=== PATIENT | female | born 1955 | race Caucasian/White ===

== ENCOUNTER 2018-11-05 00:39 | Outpatient (CLI) | payer BC, SELFPAY ==
--- NOTE | 2018-11-05 15:00 | DI.MAMMO_ITS ---
SYMPTOM/DIAGNOSIS: SCREENING, Z12.31 MAMMOGRAMS: Mammograms were interpreted according to the usual protocol including computer analysis with CAD system, tomosynthesis and C view imaging. No prior comparison exams are available. The patient had a previous exam in 2004 which is no longer available for comparison. The breasts are composed of fatty density tissue, breast density, Category A. A pacemaker is noted over the left axillary region and upper left breast. No suspicious masses or suspicious microcalcifications are seen. IMPRESSION: Category 1A, negative mammogram. Yearly screening mammography is recommended. [facility] ASSESSMENT OF FINDINGS: Negative. Category 1. Patient will receive a letter notifying them of these results. BI-RAD category A. The breasts are almost entirely fatty.
== END 2018-11-05 00:59 ==
DX: Z12.31 Encounter for screening mammogram for malignant neoplasm of breast (principal)
CPT/HCPCS: 77063; 77067

== ENCOUNTER 2019-09-15 01:54 | Outpatient (CLI) | payer BC, SELFPAY ==
[2019-09-15 11:02] LABS: Hemoglobin A1C 5.7 % (4.5-6.2)
[2019-09-15 11:20] LABS: ALT 20 U/L (14-59); AST 19 U/L (15-37); Albumin 3.6 g/dL (3.4-5.0); Alkaline Phosphatase 129 U/L (46-116); Anion Gap 9.7 mmol/L (3-11); BUN 18 mg/dL (7-18); Bilirubin, Total 0.4 mg/dL (0.2-1.0); CO2 31.3 mmol/L (21.0-32.0); CREATININE 1.13 mg/dL (0.55-1.02); Chloride 101 mmol/L (98-107); Estimated GFR 48.79 (mL/min/1.73m2); Glucose 96 mg/dL (74-106); Potassium 3.2 mmol/L (3.5-5.1); Sodium 142 mmol/L (136-145); TSH (W/Ref FT4) 1.14 uIU/mL (0.36-3.74); Total Protein 7.8 g/dL (6.4-8.2)
== END 2019-09-15 02:14 ==
PROVIDERS: Visit Provider Family Medicine
DX: E03.9 Hypothyroidism, unspecified (principal); E05.00 Thyrotoxicosis with diffuse goiter without thyrotoxic crisis or storm; E87.6 Hypokalemia; I10 Essential (primary) hypertension; R73.9 Hyperglycemia, unspecified; G47.00 Insomnia, unspecified
CPT/HCPCS: 36415; 80053; 83036; 83735; 84443

== ENCOUNTER 2019-11-11 02:45 | Outpatient (CLI) | payer BC, SELFPAY ==
[2019-11-11 11:07] LABS: BUN 16 mg/dL (7-18); CREATININE 1.17 mg/dL (0.55-1.02); Calcium 9.6 mg/dL (8.5-10.1); Chloride 97 mmol/L (98-107); Estimated GFR 46.87 (mL/min/1.73m2); Glucose 121 mg/dL (74-106); Sodium 141 mmol/L (136-145)
[2019-11-11 11:15] LABS: Potassium 2.7 mmol/L (3.5-5.1)
== END 2019-11-11 03:05 ==
DX: I10 Essential (primary) hypertension (principal); E87.6 Hypokalemia; R60.0 Localized edema
CPT/HCPCS: 36415; 80048

== ENCOUNTER 2019-11-11 11:19 | Outpatient (REF) | payer BC, SELFPAY ==
--- NOTE | 2019-11-11 08:30 | PAPFT_PTH ---
PATIENT: Chiquita Valderrama LOC: [facility] U#:[id number] AGE/SX: 64/F ROOM: RE11/11/[address]: Danita Cadet APRN : 1955 BED: DIS: 11/11/2019 SPEC #: [id number] RECD: 11/11/19 11:41 STATUS: CHIN YODER #: [id number] DAKOTA: 11/11/19 08:[address]: Danita Cadet DEPT: [facility] Cytology RECD BY: Mago Martinez Tissues: 1 - CX/ENDOCX FOR PAP SMEARS Procedures: PAP THIN PREP/UVM Screening Comments: [id number] (HPV - QUANTITY NOT SUFFICIENT)
== END 2019-11-11 11:39 ==
LOC: LBN 11:19
DX: Z12.4 Encounter for screening for malignant neoplasm of cervix (principal); Z11.51 Encounter for screening for human papillomavirus (HPV)
CPT/HCPCS: 88142

== ENCOUNTER 2019-11-15 02:01 | Outpatient (CLI) | payer BC, SELFPAY ==
[2019-11-15 11:05] LABS: Potassium 3.9 mmol/L (3.5-5.1)
== END 2019-11-15 02:21 ==
DX: E87.6 Hypokalemia (principal); T50.2X5A Adverse effect of carbonic-anhydrase inhibitors, benzothiadiazides and other diuretics, initial encounter
CPT/HCPCS: 36415; 84132

== ENCOUNTER 2020-04-06 00:45 | Outpatient (CLI) | payer BC, SELFPAY ==
--- NOTE | 2020-04-06 10:55 | DI.MAMMO_ITS ---
EXAM: MG MAMMO SCREENING CLINICAL HISTORY: screening, Z12.39 TECHNIQUE: Bilateral full field digital CC and MLO mammographic images were obtained with 3D tomosyn thesis and utilizing computer aided detection (CAD). COMPARISON: Available for comparison. FINDINGS: Masses/Architectural Distortion: None seen. A pacemaker is in place overlying the left chest wall. Microcalcifications: No suspicious pleomorphic-type are seen. Skin Thickening/Nipple Retraction: None. IMPRESSION: 1. No significant interval change with no specific features of malignancy noted. 2. Unless there is more urgent need, screening mammography is recommended, as per [place] [employer] guidelines. BI-RADS Category 1 - Negative Breast Density - Category A - Almost entirely fatty A negative radiographic report should not delay biopsy if a dominant or clinically suspicious mass is present. Up to ten percent of cancers are not identified on mammography. A negative report may reinforce clinical impression. Adenosis and dense breasts may obscure an underlying neoplasm. False positive reports average 6 to 10%. Patient will receive a letter notifying them of these results.
== END 2020-04-06 01:05 ==
DX: Z12.31 Encounter for screening mammogram for malignant neoplasm of breast (principal); Z95.0 Presence of cardiac pacemaker
CPT/HCPCS: 77063; 77067

== ENCOUNTER 2020-11-09 13:01 | Outpatient (REF) | payer BC, SELFPAY ==
--- NOTE | 2020-11-09 11:00 | PAPFT_PTH ---
PATIENT: Chiquita Valderrama LOC: [facility] U#:[id number] AGE/SX: 65/F ROOM: RE11/09/[address]: Danita Cadet APRN : 1955 BED: DIS: 11/09/2020 SPEC #: [id number] RECD: 11/09/20 13:05 STATUS: CHIN YODER #: [id number] DAK[place]: 11/09/20 11:[address]: Danita Cadet DEPT: [facility] Cytology RECD BY: Mago Martinez Tissues: 1 - CX/ENDOCX FOR PAP SMEARS Procedures: PAP THIN PREP/UVM Screening HPV DNA PROBE Comments: [id number]
== END 2020-11-09 13:02 | disposition home or self-care (01) ==
LOC: LBN 13:01
DX: Z12.4 Encounter for screening for malignant neoplasm of cervix (principal); Z11.51 Encounter for screening for human papillomavirus (HPV)
CPT/HCPCS: 88142; 87624

== ENCOUNTER 2020-11-17 00:42 | Outpatient (CLI) | payer BC, SELFPAY ==
[2020-11-17 12:52] LABS: ALT 26 U/L (14-59); AST 19 U/L (15-37); Albumin 3.9 g/dL (3.4-5.0); Alkaline Phosphatase 134 U/L (46-116); Anion Gap 9.2 mmol/L (3-11); BUN 18 mg/dL (7-18); Bilirubin, Total 0.4 mg/dL (0.2-1.0); CO2 30.8 mmol/L (21.0-32.0); CREATININE 1.1 mg/dL (0.55-1.02); Calcium 9.7 mg/dL (8.5-10.1); Calculated LDL 170 mg/dL (<100); Chloride 99 mmol/L (98-107); Cholesterol 266 mg/dL (<200); Estimated GFR 50.17 (mL/min/1.73m2); Glucose 105 mg/dL (74-106); HDL Cholesterol 51 mg/dL (40-60); Potassium 3.3 mmol/L (3.5-5.1); Sodium 139 mmol/L (136-145); Total Protein 8.7 g/dL (6.4-8.2); Triglyceride 227 mg/dL (<150)
== END 2020-11-17 00:43 | disposition home or self-care (01) ==
LOC: LOS 00:42
DX: Z00.00 Encounter for general adult medical examination without abnormal findings (principal); Z13.220 Encounter for screening for lipoid disorders
CPT/HCPCS: 36415; 80053; 80061

== ENCOUNTER 2021-04-10 03:11 | Outpatient (CLI) | payer BC, SELFPAY ==
--- NOTE | 2021-04-10 07:15 | DI.MAMMO_ITS ---
Exam(s) MAMMO SCREENING EXAM: MAMMO SCREENING CLINICAL HISTORY: screening,z12.39 TECHNIQUE: Bilateral full field digital CC and MLO mammographic images were obtained with 3D tomosyn thesis and utilizing computer aided detection (CAD). COMPARISON: Available for comparison. FINDINGS: Masses/Architectural Distortion: None seen. Microcalcifications: No suspicious pleomorphic-type are seen. Skin Thickening/Nipple Retraction: None. IMPRESSION: 1. No significant interval change with no specific features of malignancy noted. 2. Unless there is more urgent need, screening mammography is recommended, as per [employer] guidelines. BI-RADS Category 1 - Negative Breast Density - Category B - Scattered areas of fibroglandular density Breast density category C or D implies that the patient has dense breast tissue. Dense breast tissue is very common and is not abnormal but dense breast tissue can make it harder to find cancer on a ma mmogram. Also, dense breast tissue may increase their breast cancer risk. This information about the result of the mammogram report was provided to the patient to raise their awareness. Use this report when you speak with the patient about their risks for breast cancer, which includes their family hist ory. At that time, you may recommend for more screening tests (Ultrasound or MRI) as they might be us eful based on their risk. A negative radiographic report should not delay biopsy if a dominant or clinically suspicious mass is present. Up to ten percent of cancers are not identified on mammography. A negative report may reinforce clinical impression. Adenosis and dense breasts may obscure an underlying neoplasm. False positive reports average 6 to 10%. Patient will receive a letter notifying them of these results.
== END 2021-04-10 03:31 ==
DX: Z12.31 Encounter for screening mammogram for malignant neoplasm of breast (principal); R92.8 Other abnormal and inconclusive findings on diagnostic imaging of breast
CPT/HCPCS: 77063; 77067

== ENCOUNTER 2022-01-07 04:24 | Outpatient (CLI) | payer BC, SELFPAY | END 2022-01-07 04:25 | disposition home or self-care (01) | LOC: LBO 04:25 ==

== ENCOUNTER 2022-01-22 20:39 | Outpatient (REF) | payer BC, SELFPAY ==
[2022-01-22 23:52] LABS: Anion Gap 7.8 mmol/L (3-11); BUN 27 mg/dL (7-18); CO2 29.2 mmol/L (21.0-32.0); CREATININE 1.3 mg/dL (0.55-1.02); Calcium 9.6 mg/dL (8.5-10.1); Chloride 100 mmol/L (98-107); Estimated GFR 41.24 (mL/min/1.73m2); Glucose 89 mg/dL (74-106); Potassium 3.5 mmol/L (3.5-5.1); Sodium 137 mmol/L (136-145)
== END 2022-01-22 20:40 | disposition home or self-care (01) ==
LOC: LBN 20:39
DX: E87.6 Hypokalemia (principal)
CPT/HCPCS: 80048

== ENCOUNTER 2022-02-11 01:32 | Outpatient (CLI) | payer BC, SELFPAY | END 2022-02-11 01:33 | disposition home or self-care (01) | LOC: LBO 01:32 ==

== ENCOUNTER → 2022-07-31 02:32 | Outpatient (CLI) | payer MEDICARE, BC, SELFPAY ==
--- NOTE | 2022-07-31 15:15 | DI.MAMMO_ITS ---
Exam(s) MAMMO SCREENING EXAM: MAMMO SCREENING CLINICAL HISTORY: screening,Z12.39 TECHNIQUE: Mammograms were interpreted according to the usual protocol including computer analysis w [employer] CAD system, tomosynthesis and C-view imaging. COMPARISON: FINDINGS: The breasts are of moderate density with fairly symmetrical distribution of fibroglandular tissue. N o dominant mass or clumped microcalcification is identified in either breast. The current examinatio n is compared with previous examinations including April 2021 and there has been no gross interval elizabeth nge in appearance in comparison prior studies. IMPRESSION: No specific evidence of malignancy at this time. Routine screening examinations are suggested at yea rly intervals in this age group according to the ACS ACR guidelines. BI-RADS Category 1 - Negative Breast Density - Category B - Scattered areas of fibroglandular density
== END ==
DX: Z12.31 Encounter for screening mammogram for malignant neoplasm of breast (principal)
CPT/HCPCS: 77063; 77067

== ENCOUNTER 2022-09-12 12:14 | Outpatient (REF) | payer MEDICARE, BC, SELFPAY ==
[2022-09-14 11:50] LABS: COVID-19 RT-PCR UVMMC Result Positive (Negative)
== END 2022-09-12 12:15 | disposition home or self-care (01) ==
LOC: LBN 12:14
PROVIDERS: PCP Nurse Practitioner Family; Visit Provider Physician Assistant Medical
DX: Z20.822 Contact with and (suspected) exposure to COVID-19 (principal)
CPT/HCPCS: U0003

== ENCOUNTER 2023-04-04 01:16 | Outpatient (CLI) | payer MEDICARE, SELFPAY ==
[2023-04-04 12:59] LABS: ALT 23 U/L (14-59); AST 19 U/L (15-37); Albumin 3.7 g/dL (3.4-5.0); Alkaline Phosphatase 118 U/L (46-116); Anion Gap 7.8 mmol/L (3-11); BUN 21 mg/dL (7-18); Bilirubin, Total 0.3 mg/dL (0.2-1.0); CO2 32.2 mmol/L (21.0-32.0); CREATININE 1.1 mg/dL (0.55-1.02); Calculated LDL 174 mg/dL (<100); Chloride 101 mmol/L (98-107); Cholesterol 272 mg/dL (<200); Estimated GFR 55.76 (mL/min/1.73m2); Glucose 111 mg/dL (74-106); HDL Cholesterol 48 mg/dL (40-60); Potassium 3.9 mmol/L (3.5-5.1); Sodium 141 mmol/L (136-145); TSH (W/Ref FT4) 1.04 uIU/mL (0.36-3.74); Total Protein 8.4 g/dL (6.4-8.2); Triglyceride 251 mg/dL (<150)
== END 2023-04-04 01:17 | disposition home or self-care (01) ==
LOC: LOS 01:16
PROVIDERS: PCP Nurse Practitioner Family; Visit Provider Nurse Practitioner Family
DX: E78.5 Hyperlipidemia, unspecified (principal); E05.00 Thyrotoxicosis with diffuse goiter without thyrotoxic crisis or storm; E87.6 Hypokalemia; I10 Essential (primary) hypertension
CPT/HCPCS: 36415; 80053; 80061; 84443

== ENCOUNTER 2023-05-10 10:04 | Inpatient (IN) | payer MEDICARE, SELFPAY ==
[2023-05-10] VITALS (43 sets, daily range): BP systolic 109–136; BP diastolic 67–94; PULSE 104–128; RESP 4–29; TEMP 35.4–37.5; O2SAT 87–95
--- NOTE | 2023-05-10 10:00 | RT.EKG_ITS ---
APPROVED REPORT Exam: Resting ECG Reason for Exam: sob Patient Location: E HR:119 bpm ECG Measurements Heart Rate 119 AXIS NC 148 P 63 QRSd 109 QRS -39 QT 342 T 126 QTc 482 Conclusion Ventricular-paced rhythm
--- NOTE | 2023-05-10 10:12 | ED.GENADUL_ITS ---
Discharge Plan Disposition Patient Disposition: Admit to [facility] Condition: Serious Discharge Details Clinical Impression: Pulmonary embolism on right Admit Date/Time: 05/10/23 13:52 Admit Provider: Mariano Ha Attending Provider: Mariano Ha Primary Care Provider: Edwin Velázquez ED Provider: Janet Rdz Medical Decision Making 68-year-old female with a past medical history of biventricular pacemaker, obesity, hypokalemia, Graves' disease hypertension presents to the ER with a chief complaint of shortness of breath that began acutely this morning upon awakening. She presented to express care sent her here for further eval. Repor t in urgent care was room air O2 sat after ambulation to 80%, she presents 92% on room air. She does have increased work of breathing diminished lung sounds bilaterally in the bases, she is a non-smoker, denies any chest pain. Denies any nausea vomiting diarrhea or any other associated symptoms. She is slightly tachypneic and tachycardic at 122. EKG was reviewed by Dr. Mistry and myself ER attending, old EKG available for review. Ventricular paced rhythm at a rate of 119. Cardiac work-up ordered including serial troponins, albuterol nebulizer, FLUVID and CT chest rule out PE. Differential diagnosis includes but not limited to pneumonia, URI, OK, CAD, PE. Labs show CBC with white blood cell count of 12.10, lymphocytes slightly elevated at 4.27 monocytes 0.90, sodium 139 potassium 3.4 creatinine 1.1 GFR 55.2 which appears to be patient's baseline, glucose 133 alk phos 148 initial troponin within normal limits TSH also within normal limits. BNP is negative. Urinalysis is pending at this time, COVID flu and RSV is pending. We will CT patient's chest for rule out PE versus pneumonia. [employer] pacemaker interrogated by billing and accounting staff assistant, the report shows 99% paced, in the last 93 days 2 episodes of 3 or more PVCs. Pacemaker interrogation is reassuring reassuring at this time. 1146: Spoke with V rad radiologist Dr. Carranza who reports that there is an extensive right-sided pulmonary embolism with positive right ventricular strain. Please see official report. Will discuss results with patient and call hospitalist for admission. Will consider Lovenox versus heparin. PT PTT added onto labs. 1156: O2 sats 87 to 89% on room air, patient placed on 2 L nasal cannula, O2 sat up to 92% on 2 L. She does have bilateral lower extremity edema approximately 2+ or more bilaterally. She does not know how long this has been going on. She says may be 2 to 3 days. I did discuss my recommendation for admission. Will page hospitalist. Patient states she has no history of blood clots personally. Her mom did have a DVT. She reports no recent long trips in a car plane however she did fly to [place] in February. Discussed plan of care with patient who verbalizes understanding and is in agreement with the plan. 1158: Hospitalist paged. 1211: Heparin infusion DVT, PE protocol ordered and bilateral lower extremity Doppler to rule out DVT due to lower extremity swelling. 1318: Spoke with Dr. Ha regarding patient case and details, he reccommends consultation with [facility] team to discuss appropriate anticoagulation, he agrees to come see patient in the ED. 1335: [facility] transfer center called to consult with [facility] team. Dr. Ha here at [facility] for eval. He agrees to accept patient for admission. 1349: Spoke with Dr. Kong with Cardiology, he recommends Lovenox over Heparin and possible transfer for further treatment options, He recommends starting on Lovenox , stop Heparin. Will call [facility] back for transfer request. 1357: Spoke with Dr. Ram regarding change in disposition. Second troponin slightly elevated at 106. Heparin order canceled, and Lovenox ordered. 1359: Spoke with Transfer center they state that they may be able to get patient in by tomorrow. Will re-page hospitalist. 1403: Spoke with Leland he is at BS for POCUS echo, will plan to admit here pending transfer if needed to [facility]. Accepting Physician at [facility] Dr. Prieto Knox. Bilateral lower extremity Doppler negative for DVT. Patient to be transferred up to floor. This text was generated using [employer]ation system, please disregard any oddities of phrase or misspellings. Medical Records Medical records reviewed: Yes I reviewed the patient's medical records. Medical records narrative: Patient had pacemaker placed in 2018 after complete heart block at [facility] Imaging Data Radiologic Study: Imaging: Ultrasound Radiologist's impression: TECHNIQUE: Imaging protocol: Real-time duplex ultrasound of the bilateral extremities with 2-D moore scale, color Doppler flow and spectral waveform analysis including responses to compression and other maneuvers (when performed) with image documentation. Complete exam focused on the lower extremity veins. COMPARISON: No relevant prior studies available. FINDINGS: Right deep veins: Unremarkable. The common femoral, femoral, proximal profunda femoral and popliteal veins are patent without thrombus. Normal Doppler waveforms. Normal compressibility and/or augmentation response. Left deep veins: Unremarkable. The common femoral, femoral, proximal profunda femoral and popliteal veins are patent without thrombus. Normal Doppler waveforms. Normal compressibility and/or augmentation response. Superficial veins: Bilateral saphenofemoral junctions are patent without thrombus. Soft tissues: Unremarkable. IMPRESSION: No evidence of deep vein thrombosis. Radiologic Study #2: Imaging: CT Scan Radiologist's impression: COMPARISON: No relevant prior studies available. FINDINGS: Tubes, catheters and devices: Left chest wall pacemaker with transvenous leads into the right atrium, right ventricle and coronary sinus. ARELIS RAINESINE Preliminary Radiology Report Pulmonary arteries: Nonocclusive saddle embolism. The distal portion of the right pulmonary artery becomes occluded with thrombus extends throughout the right lung. The left lung has no peripheral thrombi. RV/LV ratio: 1.4. Aorta: Unremarkable. No aortic aneurysm. No aortic dissection. Lungs: Focal fibrosis in the periphery of the right upper lobe. No lobar consolidations. Pleural spaces: Unremarkable. No pneumothorax. No pleural effusion. Heart: Moderate cardiomegaly. The heart has a biventricular configuration. Lymph nodes: Unremarkable. No enlarged lymph nodes. Bones/joints: Unremarkable. No acute fracture. Soft tissues: Unremarkable. IMPRESSION: Extensive right pulmonary artery thrombi. RV ratio 1.4 indicating right ventricular strain. Thank you for allowing us to participate in the care of your patient. Dictated and Authenticated by: Dale Carranza MD Lab Data Lab results reviewed: Yes I reviewed the patient's lab results. Labs: Laboratory Tests Range/Units 05/10/23 05/10/23 05/10/23 10:24 10:25 10:25 WBC (4.4-10.8) 10^3/uL 12.10 H RBC (3.93-5.22) 10^6/uL 5.26 H Hgb (11.2-15.7) g/dL 15.0 Hct (36.0-46.0) % 45.5 MCV (80-95) fL 87 MCH (27.0-33.0) pg 28.5 MCHC (32.0-36.0) % 33.0 RDW (11.7-14.6) % 14.1 Plt Count (130-400) 10^3/uL 330 MPV (8.0-11.0) fL 9.4 Immature Gran % 0.5 Neutrophils % 54.2 Lymphocytes % 35.3 Monocytes % 7.4 Eosinophils % 1.9 Basophils % 0.7 Nucleated RBC % (0.0-0.3) % 0.0 Absolute Neutrophils (1.2-6.7) 10^3/uL 6.56 Absolute Lymphocytes (1.2-3.4) 10^3/uL 4.27 H Absolute Monocytes (0.1-0.8) 10^3/uL 0.90 H Absolute Eosinophils (0.0-0.7) 10^3/uL 0.23 Absolute Basophils (0.0-0.2) 10^3/uL 0.08 Sodium (136-145) mmol/L 139 Potassium (3.5-5.1) mmol/L 3.4 L Chloride (98-107) mmol/L 99 Carbon Dioxide (21.0-32.0) mmol/L 30.4 Anion Gap (3-11) mmol/L 9.6 BUN (7-18) mg/dL 18 Creatinine (0.55-1.02) mg/dL 1.1 H Est GFR (CKD-EPI 2020) (mL/min/1.73m2) 55.42 Glucose (74-106) mg/dL 133 H Calcium (8.5-10.1) mg/dL 9.6 Magnesium (1.8-2.4) mg/dL 2.0 Total Bilirubin (0.2-1.0) mg/dL 0.3 AST (15-37) U/L 16 ALT (14-59) U/L 23 Alkaline Phosphatase (46-116) U/L 148 H Troponin I (<or=60) ng/L < 50 NT-Pro-B Natriuret Pep (<300) pg/mL 56 Total Protein (6.4-8.2) g/dL 9.3 H Albumin (3.4-5.0) g/dL 4.0 TSH Cancelled 1.50 Urine Color (Yellow) Urine Clarity (Clear) Urine pH (5-8) Ur Specific [place] (1.005-1.025) Urine Protein (Negative) mg/dL Urine Ketones (Negative) mg/dL Urine Blood (Negative) Urine Nitrite (Negative) Urine Bilirubin (Negative) Urine Urobilinogen (Up to 0.2) mg/dL Ur Leukocyte Esterase (Negative) Urine RBC (0-2) HPF Urine WBC (0-5) HPF Ur Epithelial Cells (Negative) HPF Urine Crystals (Negative) HPF Urine Bacteria (Negative) HPF Urine Casts (Negative) LPF Urine Mucus (Negative) Ur Culture Indicated? Urine Glucose (Negative) mg/dL Range/Units 05/10/23 11:26 WBC (4.4-10.8) 10^3/uL RBC (3.93-5.22) 10^6/uL Hgb (11.2-15.7) g/dL Hct (36.0-46.0) % MCV (80-95) fL MCH (27.0-33.0) pg MCHC (32.0-36.0) % RDW (11.7-14.6) % Plt Count (130-400) 10^3/uL MPV (8.0-11.0) fL Immature Gran % Neutrophils % Lymphocytes % Monocytes % Eosinophils % Basophils % Nucleated RBC % (0.0-0.3) % Absolute Neutrophils (1.2-6.7) 10^3/uL Absolute Lymphocytes (1.2-3.4) 10^3/uL Absolute Monocytes (0.1-0.8) 10^3/uL Absolute Eosinophils (0.0-0.7) 10^3/uL Absolute Basophils (0.0-0.2) 10^3/uL Sodium (136-145) mmol/L Potassium (3.5-5.1) mmol/L Chloride (98-107) mmol/L Carbon Dioxide (21.0-32.0) mmol/L Anion Gap (3-11) mmol/L BUN (7-18) mg/dL Creatinine (0.55-1.02) mg/dL Est GFR (CKD-EPI 2020) (mL/min/1.73m2) Glucose (74-106) mg/dL Calcium (8.5-10.1) mg/dL Magnesium (1.8-2.4) mg/dL Total Bilirubin (0.2-1.0) mg/dL AST (15-37) U/L ALT (14-59) U/L Alkaline Phosphatase (46-116) U/L Troponin I (<or=60) ng/L NT-Pro-B Natriuret Pep (<300) pg/mL Total Protein (6.4-8.2) g/dL Albumin (3.4-5.0) g/dL TSH Urine Color (Yellow) Yellow Urine Clarity (Clear) Clear Urine pH (5-8) 7.0 Ur Specific [place] (1.005-1.025) 1.020 Urine Protein (Negative) mg/dL 100 H Urine Ketones (Negative) mg/dL Negative Urine Blood (Negative) Trace-intact H Urine Nitrite (Negative) Positive H Urine Bilirubin (Negative) Negative Urine Urobilinogen (Up to 0.2) mg/dL 0.2 Ur Leukocyte Esterase (Negative) Negative Urine RBC (0-2) HPF 3-5 H Urine WBC (0-5) HPF 3-5 Ur Epithelial Cells (Negative) HPF Many Urine Crystals (Negative) HPF Negative Urine Bacteria (Negative) HPF Many Urine Casts (Negative) LPF Negative Urine Mucus (Negative) Negative Ur Culture Indicated? No/Sq. Contamination Urine Glucose (Negative) mg/dL Negative HPI General Mode of arrival: ambulatory . Date/Time Provider Initiated Documentation: 05/10/23 10:11 . Limitations to Documentation: no limitations . Information obtained by: patient, RN/MD ([facility]), RN notes reviewed and old records reviewed . HPI Narrative: 68-year-old female with a past medical history of biventricular pacemaker, obesity, hypokalemia, Graves' disease hypertension presents to the ER with a chief complaint of shortness of breath that began acutely this morning upon awakening. She presented to express care sent her here for further eval. Report in urgent care was room air O2 sat after ambulation to 80%, she presents 92% on room air. She does have increased work of breathing diminished lung sounds bilaterally in the bases, she is a non-smoker, denies any chest pain. Denies any nausea vomiting diarrhea or any other associated symptoms. She is slightly tachypneic and tachycardic at 122. Related Data Home Medications Medication Instructions Recorded Confirmed aspirin 81 mg chewable tablet 81 mg PO DAILY 10/16/17 05/10/23 triamcinolone acetonide 0.025 % 1 applic topical BID #80 grams 01/22/22 05/10/23 topical ointment metoprolol succinate 50 mg 50 mg PO DAILY #90 tabs 08/21/22 05/10/23 tablet,extended release 24 hr amlodipine 10 mg tablet See Rx Instructions .Route 10/01/22 05/10/23 .COMPLEX #90 tabs hydrochlorothiazide 25 mg tablet See Rx Instructions .Route 10/01/22 05/10/23 .COMPLEX #90 tabs potassium chloride 20 mEq 20 meq PO ONCE 05/10/23 05/10/23 tablet,extended release (K-Tab) Previous Rx's Medication Instructions Recorded triamcinolone acetonide 0.025 % 1 applic topical BID #80 grams 01/22/22 topical ointment metoprolol succinate 50 mg 50 mg PO DAILY #90 tabs 08/21/22 tablet,extended release 24 hr amlodipine 10 mg tablet See Rx Instructions .Route 10/01/22 .COMPLEX #90 tabs hydrochlorothiazide 25 mg tablet See Rx Instructions .Route 10/01/22 .COMPLEX #90 tabs Allergies Allergy/AdvReac Type Severity Reaction Status Date / Time No Known Allergies Allergy Verified 05/10/23 09:40 General Stated Complaint: SOB ANGELA: 2 Review of Systems All systems reviewed & are unremarkable except as noted in HPI and below Constitutional Constitutional: Denies fever(s) Cardiovascular Cardiovascular: Reports as per HPI, Denies chest pain, Denies chest pain at rest, Reports rapid heart rate, Reports dyspnea and Reports dyspnea on exertion Respiratory Respiratory: Denies change in phlegm color, Reports cough, Denies hemoptysis, Reports dyspnea and Reports dyspnea on exertion Gastrointestinal Gastrointestinal: Denies diarrhea, Denies nausea and Denies vomiting [facility] All Active Problems (Updated 05/10/23 @ 15:23 by Mariano Ha MD) Elevated troponin I level (Acute) Pulmonary embolism, bilateral (Acute) Pulmonary embolism on right (Acute) Hypertension (Chronic 11/27/17) Graves disease (Chronic) Chronic bilateral low back pain without sciatica (Chronic 11/27/17) Bradycardia by electrocardiogram (Chronic 10/16/17) 10/23/17 - Pacer placed at [facility] for complete HB. Uterine prolapse (Chronic) Declines [employer] consult so far Screening cholesterol level (Acute) Hypokalemia (Acute) Obesity (BMI 35.0-39.9 without comorbidity) (Chronic) COVID (Acute ~09/05/22) Pacemaker (Acute) Medical History (Updated 05/10/23 @ 15:23 by Mariano Ha MD) Cardiomyopathy (~2008) echo 08/18/2009 generalized HK LV EF 39%; repeat echo 11/22/2021 normal, LVEF 61% Family History Mother Emphysema lung Asthma Father , AGE 84 Heart disease Kidney failure Sister Essential hypertension Sister Depression Brother Stroke Heart disease Brother Heart disease PACEMAKER Hyperlipidemia Son No problems noted. Daughter No problems noted. Social History Smoking/Tobacco Use Status: Never Second Hand Exposure: No Smoking risk assessment performed?: Yes Alcohol Intake: current Alcohol Intake frequency: a few times a month Alcohol type: beer and wine Drug use: Never Substance use type: does not use Counseling given: No Counseling provided: none Caregiver/Support person: No Household members: friend(s) Housing: other Communication Needs: None Pets and animals: Yes Pets and animals: cat(s) and dog(s) Sexually active: No Do you think of yourself as: straight/heterosexual Current gender identity: female What is your relationship status?: How often do you talk on the phone with friends or family?: twice per week How often do you get together with friends or relatives?: three or more times per week How often do you attend adventist or cheondoism services?: decline to answer Do you belong to any clubs or organized social groups?: no Panel score (0-1 are the most socially isolated patients): 1 What type of physical activity do you participate in: walking Duration: 15-30 minutes/day Frequency: 3-4 times per week Rebecca/Episcopal: Mandaeism Special rebecca needs: No Seatbelt use: always Helmet use: No Drive intox or ride w/intox water taxi driver: No Do you feel safe in your relationship?: Yes Exam Narrative Exam Narrative: Constitutional: Alert and oriented x3. Appears stated age. Normal body habitus. Head: Normocephalic, no trauma. Eyes: Pupils PERRL, Red reflex noted, EOM's intact. Eyelids symmetrical without lesions, discharge, or swelling. ENT: Bilateral TM's WNL, External ear normal to inspection, no mastoid TTP, swelling, or erythema, Nasal turbinates WNL, no nasal discharge. Normal dentition, Posterior pharynx WNL, no exudate. Chest: Mildly tachycardic at rate of 118 cool extremities,, Normal S1, S2, distal pulses intact. Resp: Lungs diminished to auscultation bilaterally, increased work of breathing, tachypneic Abdomen: Soft, non-distended, Normoactive bowel sounds all 4 quads. Musculoskeletal: Normal gait, 5/5 strength to all four extremities. Skin: No suspicious rashes or lesions. Capillary refill less than 2 sec. cool upper extremities, Bilateral lower extremity edema, 2+ non pitting. Neurologic: Cranial nerves II-XII intact. Alert and oriented x 3. Motor: No deficits noted. Sensory: Intact bilaterally all 4 extremities. Hematologic/Lymphatic: No ecchymosis, no lymphadenopathy. Course Vital Signs Vital signs: Vital Signs Temperature 36.7 C 05/10/23 10:08 Pulse 122 H 05/10/23 10:08 Respiratory Rate 26 H 05/10/23 10:08 Blood Pressure 132/85 05/10/23 10:08 Pulse Oximetry 92 05/10/23 10:08 Temperature 36.7 C 05/10/23 10:08 Temperature Source Oral 05/10/23 10:08 Pulse 122 H 05/10/23 10:08 Respiratory Rate 26 H 05/10/23 10:08 Blood Pressure 132/85 05/10/23 10:08 Blood Pressure Position Sitting 05/10/23 10:08 Pulse Oximetry 92 05/10/23 10:08 Oxygen Delivery Method Room Air 05/10/23 10:08 Oxygen Flow Rate 0 05/10/23 10:08 Pain Level 0 05/10/23 10:08 Critical Care Time Critical Care Time Critical Care Time: Yes Total Critical Care Time: 45 Attestation: I spent greater than 35 minutes addressing this patient's acute life threatening illness. This time was spent engaged in actions directly related to the patient's care. Failure to initiate these interventions would have likely resulted in clinically significant or life threatening deterioration in the patients condition.
--- NOTE | 2023-05-10 10:15 | DI.CT_ITS ---
Exam(s) CT CHEST PE CTA EXAM: CT CHEST PE CTA CLINICAL HISTORY: SOB, Tachycardia. TECHNIQUE: Imaging Protocol: Axial CT angiography was performed with multi-slice acquisition and mu lti-planar reconstructions as well as axial, coronal and sagittal MIP reconstructions. CONTRAST MATERIAL: Intravenous: Omnipaque 350 Contrast volume:100 ml COMPARISON: CR THORACIC SPINE from 01/22/2018 FINDINGS: Pulmonary Arteries: Saddle embolus. On the left the thrombus extends into the left main pulmonary ar zayda but no distal branch emboli are seen. On the right, the thrombus extends into all upper and low er lobe lobe is well as middle lobe pulmonary artery branches. Tracheobronchial tree: Patent where visualized. Mediastinum and Krystal: No dominant adenopathy or fluid collection. Pulmonary parenchyma: Evaluation limited due to respiratory motion and expiratory changes. No consol idation or dominant measurable mass. Pleura: No effusion or pneumothorax. Heart: Diffusely enlarged. Evidence of right heart strain. Aorta: Thoracic aorta non-dilated. No aneurysm. No dissection. Upper abdomen: Unremarkable. Bones: Unremarkable for age. Tubes, Catheters, and Lines: Pacemaker. IMPRESSION: Saddle embolus with thrombus extending into right upper, middle and lower lobe pulmonary arteries. E vidence of right heart strain. RADIATION DOSE DELIVERED: 315.27mGy.cm Total DLP DATA REPOSITORY: All CT scans at this facility are submitted to the National Radiology Data Registry (NRDR) Dose Index Registry (DIR) with the [employer] (ACR). RADIATION OPTIMIZATION: All CT scans at this facility use at least one of these dose optimization te chniques: automated exposure control; mA and/or kV adjustment per patient size (includes targeted exa ms where dose is matched to clinical indication); or iterative reconstruction.
[2023-05-10] MEDS: Albuterol/Ipratropium 3 ML UPD VIAL UPD (10:34)
[2023-05-10 10:41] LABS: Abs Immature Grans 0.06 10^3/uL (0.0-0.06); Absolute Basophil Count 0.08 10^3/uL (0.0-0.2); Absolute Eosinophil Count 0.23 10^3/uL (0.0-0.7); Absolute Lymphocyte Count 4.27 10^3/uL (1.2-3.4); Basophils % 0.7; Eosinophils % 1.9; HCT 45.5 % (36.0-46.0); Immature Grans % 0.5; Lymphocytes % 35.3; MCH 28.5 pg (27.0-33.0); MCV 87 fL (80-95); MPV 9.4 fL (8.0-11.0); Monocytes % 7.4; Neutrophils % 54.2; Platelet Count 330 10^3/uL (130-400); RBC 5.26 10^6/uL (3.93-5.22); RDW 14.1 % (11.7-14.6); RDW-SD 44.6 fL
[2023-05-10 10:42] LABS: Absolute Neutrophil Count 6.56 10^3/uL (1.2-6.7)
--- NOTE | 2023-05-10 10:58 | NUR.NOTE ---
Pace maker interrogated successfully using [employer] updated. Meds administered, pt updated with plan of care.
[2023-05-10 11:06] LABS: ALT 23 U/L (14-59); AST 16 U/L (15-37); Alkaline Phosphatase 148 U/L (46-116); Anion Gap 9.6 mmol/L (3-11); BUN 18 mg/dL (7-18); Bilirubin, Total 0.3 mg/dL (0.2-1.0); CO2 30.4 mmol/L (21.0-32.0); CREATININE 1.1 mg/dL (0.55-1.02); Calcium 9.6 mg/dL (8.5-10.1); Chloride 99 mmol/L (98-107); Estimated GFR 55.42 (mL/min/1.73m2); Glucose 133 mg/dL (74-106); NT-proBNP 56 pg/mL (<300); Potassium 3.4 mmol/L (3.5-5.1); Sodium 139 mmol/L (136-145); Total Protein 9.3 g/dL (6.4-8.2); Troponin I < 50 ng/L (<or=60)
[2023-05-10] MEDS: Omnipaque 350 MG/ML 100 ML BTL IJ (11:37)
[2023-05-10] MEDS: Normal Saline - Diluent 50 ML VIAL IJ (11:37)
[2023-05-10] MEDS: Normal Saline Flush 10 ML SYR IVP (11:38)
[2023-05-10 11:42] LABS: Bilirubin Negative (Negative); Blood Trace-intact (Negative); Clarity Clear (Clear); Glucose Negative (Negative); Ketones Negative (Negative); Leukocyte Esterase Negative (Negative); Nitrite Positive (Negative); Urobilinogen 0.2 mg/dL (Up to 0.2)
[2023-05-10 11:49] LABS: Bacteria Many HPF (Negative); C & S Indicated? No/Sq. Contamination; Casts Negative LPF (Negative); Crystals Negative HPF (Negative); Epithelial Cells Many HPF (Negative); Mucus Negative (Negative)
--- NOTE | 2023-05-10 11:52 | DI.VRAD_ITS ---
Addendum created by Dale Carranza MD on 05/10/2023 11:53:15 AM EDT: THIS REPORT CONTAINS FINDINGS THAT MAY BE CRITICAL TO PATIENT CARE. The findings were verbally communicated via telephone conference at 11:46 AM EST on 05/10/2023 with SUZE FRANCOIS. The findings were acknowledged and understood. Initial report created on 05/10/2023 11:52:38 AM EDT: PROCEDURE INFORMATION: Exam: CTA Chest With Contrast Exam date and time: 05/10/2023 11:35 AM Age: 68 years old Clinical indication: Shortness of breath and other: SOB, tachycardia; Prior surgery; Surgery date: 6+ months; Surgery type: Pacemaker TECHNIQUE: Imaging protocol: Computed tomographic angiography of the chest with contrast. Exam focused on the arteries. 3D rendering (Not supervised by radiologist): MIP and/or 3D reconstructed images were created by the technologist. Contrast material: ONIPAQU E 350; Contrast volume: 100 ml; Contrast route: INTRAVENOUS (IV); COMPARISON: No relevant prior studies available. FINDINGS: Tubes, catheters and devices: Left chest wall pacemaker with transvenous leads into the right atrium, right ventricle and coronary sinus. Pulmonary arteries: Nonocclusive saddle embolism. The distal portion of the right pulmonary artery becomes occluded with thrombus extends throughout the right lung. The left lung has no peripheral thrombi. RV/LV ratio: 1.4. Aorta: Unremarkable. No aortic aneurysm. No aortic dissection. Lungs: Focal fibrosis in the periphery of the right upper lobe. No lobar consolidations. Pleural spaces: Unremarkable. No pneumothorax. No pleural effusion. Heart: Moderate cardiomegaly. The heart has a biventricular configuration. Lymph nodes: Unremarkable. No enlarged lymph nodes. Bones/joints: Unremarkable. No acute fracture. Soft tissues: Unremarkable. IMPRESSION: Extensive right pulmonary artery thrombi. RV ratio 1.4 indicating right ventricular strain. Dictated and Authenticated by: Dale Carranza MD. Ordering:HUY Gonzales MD
[2023-05-10 11:58] LABS: COVID-19 PCR Negative (Negative); Influenza A PCR Negative (Negative); Influenza B PCR Negative (Negative); RSV PCR Negative (Negative)
--- NOTE | 2023-05-10 12:00 | DI.US_ITS ---
Exam(s) US EXTREMITY VENOUS BI EXAM: US EXTREMITY VENOUS BI CLINICAL HISTORY: Lower Extremity swelling, positive PE. TECHNIQUE: Bilateral lower extremity venous ultrasound performed using grayscale, color-flow, and sp ectral Doppler analysis. COMPARISON: No exams were available for comparison FINDINGS: The bilateral common femoral, femoral and popliteal veins demonstrate normal compressibility, augment ation, and color Doppler. The posterior tibial veins are patent. IMPRESSION: Right: Negative for DVT Left: Negative for DVT DATA REPOSITORY:
[2023-05-10 12:07] LABS: Prothrombin Time 9.9 sec (9.3-11.0)
[2023-05-10 12:16] LABS: Source Nasopharynx
[2023-05-10] MEDS: Heparin in 0.45% NaCl 25,000 UNIT/250 ML BAG 13 UNIT IV (12:30)
--- NOTE | 2023-05-10 13:21 | DI.VRAD_ITS ---
PROCEDURE INFORMATION: Exam: US Duplex Lower Extremity Veins, Bilateral Exam date and time: 05/10/2023 12:40 PM Age: 68 years old Clinical indication: Condition or disease; Other: Pe TECHNIQUE: Imaging protocol: Real-time duplex ultrasound of the bilateral extremities with 2-D moore scale, color Doppler flow and spectral waveform analysis including responses to compression and other maneuvers (when performed) with image documentation. Complete exam focused on the lower extremity veins. COMPARISON: No relevant prior studies available. FINDINGS: Right deep veins: Unremarkable. The common femoral, femoral, proximal profunda femoral and popliteal veins are patent without thrombus. Normal Doppler waveforms. Normal compressibility and/or augmentation response. Left deep veins: Unremarkable. The common femoral, femoral, proximal profunda femoral and popliteal veins are patent without thrombus. Normal Doppler waveforms. Normal compressibility and/or augmentation response. Superficial veins: Bilateral saphenofemoral junctions are patent without thrombus. Soft tissues: Unremarkable. IMPRESSION: No evidence of deep vein thrombosis. Dictated and Authenticated by: Dale Carranza MD. Ordering:HUY Gonzales MD
[2023-05-10 13:56] LABS: Troponin I 106 ng/L (<or=60)
[2023-05-10] MEDS: Enoxaparin 60 MG/0.6 ML SYR SC (14:07)
--- NOTE | 2023-05-10 14:50 | W.PM.HP.N ---
Date of service: 05/10/23 Time of Service: 14:50 Assessment and Plan Assessment and plan (1) Pulmonary embolism, bilateral: Status: Acute Assessment and plan: continue lovenox but dosing should be 1 mg/kg actual body weight not IBW. Patient received 60 mg SC in the ED, I spoke w/ pharmacy about this and have corrected her. She will get 80 mg SC q12h (the next rounded up dosing available as her actual BW is 73 kg.) (2) Hypertension: Status: Chronic Assessment and plan: hold her toprol XL and her norvasc for now. If bp remains stable and she is still tachycardic then will re-introduce lopressor. Qualifiers: Hypertension type: essential hypertension Qualified Code(s): I10 - Essential (primary) hypertension (3) Pacemaker: Status: Acute (4) Elevated troponin I level: Status: Acute Assessment and plan: secondary to RV strain. I did POCUS echo and she has dilated RV but has good TAPSE excursion. IVC not well seen but appears to be mildly dilated but still reduces 50% or more w/ inspiration. will get formal echo on Friday morning if she is not transferred to [facility] [place]. ED provider called the PERT team and cardiology wanted her transferred to [facility] but had no beds. They indicated possible transfer tomorrow but if she does well overnight on lovenox, I see no advantage to her being transferred. I will follow serial troponin levels, BNP initially was normal, will repeat in the a.m. Also checking lactate tonight. She is hemodynamically stable for the floor. History of Present Illness History of Present Illness Chief Complaint: dyspnea Narrative: 68 yr old female non smoker who is post menopausal not on estrogen replacement therapy who presented w/ acute dyspnea begining about 9 am. This occurred while she was at home and not doing any strenuous physical activity. No associated chest pain/pressure but associated w/ wheezing. no fevers or cough. Evaluation in the ED included CTA chest that demonstrated: Extensive right pulmonary artery thrombi with evidence of RV strain with RV to LV ratio of 1.4 there is a nonocclusive saddle embolism with the distal portion of the right pulmonary artery becoming occluded with thrombus extending throughout the right lung. Left lung has no peripheral thrombi. Patient has moderate cardiomegaly. Labs initially were unremarkable with a troponin less than 50 however second set of troponin came back at 106 with a normal proBNP of 56. Rest of her CMP was only remarkable for potassium 3.4 and her CBC was remarkable for a mild leukocytosis of 12,100. Urinalysis was suspicious for UTI with positive nitrites negative leukocyte Estrace many bacteria but also many epithelial cells. FLUVID swab was negative for SARS-CoV-2 as well as influenza and RSV. Marleni Rdz NP from the emergency department discussed the case with [facility] cardiology PERT team they recommend Lovenox and transfer to [facility] for formal echocardiogram. However no beds were available at [facility] and the patient is being admitted to [facility] overnight. Patient is hemodynamically stable although she remains mildly tachycardic. Oxygen saturation has been in the mid 90s on 2 L nasal cannula. Review of risk factors for thromboembolic disease patient's mother had a history of a DVT that was not related to any surgery. Patient herself is a non-smoker and does not take any estrogen replacement she is postmenopausal and has not been on a long plane rides or car rides in the last 3 months. Last trip was 6 months ago. Patient's had no recent surgery. She does have a remote history of a cardiomyopathy and has a pacemaker that was placed about 3 or 4 years ago at [facility]. She is followed by Dr. Seven Samuel. Her last echocardiogram was from 11/22/2021 and showed normal left ventricular size normal left ventricular systolic function with an EF of 61%. RV was normal in size and function. She had no hemodynamically significant valve disease. Compared to prior echocardiogram from October 2017 there is been normalization of her systolic function. Review of Systems All systems reviewed & are unremarkable except as noted in HPI and below PFSH All Active Problems (Updated 05/10/23 @ 15:23 by Mariano Ha MD) Elevated troponin I level (Acute) Pulmonary embolism, bilateral (Acute) Pulmonary embolism on right (Acute) Hypertension (Chronic 11/27/17) Graves disease (Chronic) Chronic bilateral low back pain without sciatica (Chronic 11/27/17) Bradycardia by electrocardiogram (Chronic 10/16/17) 10/23/17 - Pacer placed at [facility] for complete HB. Uterine prolapse (Chronic) Declines OPERATIONS SPECIALIST consult so far Screening cholesterol level (Acute) Hypokalemia (Acute) Obesity (BMI 35.0-39.9 without comorbidity) (Chronic) COVID (Acute ~09/05/22) Pacemaker (Acute) Medical History (Updated 05/10/23 @ 15:23 by Mariano Ha MD) Cardiomyopathy (~2008) echo 08/18/2009 generalized HK LV EF 39%; repeat echo 11/22/2021 normal, LVEF 61% Family History Mother Emphysema lung Asthma Father , AGE 84 Heart disease Kidney failure Sister Essential hypertension Sister Depression Brother Stroke Heart disease Brother Heart disease PACEMAKER Hyperlipidemia Son No problems noted. Daughter No problems noted. Social History Smoking/Tobacco Use Status: Never Second Hand Exposure: No Smoking risk assessment performed?: Yes Alcohol Intake: current Alcohol Intake frequency: a few times a month Alcohol type: beer and wine Drug use: Never Substance use type: does not use Counseling given: No Counseling provided: none Caregiver/Support person: No Household members: friend(s) Housing: house Communication Needs: None Pets and animals: Yes Pets and animals: cat(s) and dog(s) Sexually active: No Do you think of yourself as: straight/heterosexual Current gender identity: female What is your relationship status?: How often do you talk on the phone with friends or family?: twice per week How often do you get together with friends or relatives?: three or more times per week How often do you attend protestant or sikh services?: decline to answer Do you belong to any clubs or organized social groups?: no Panel score (0-1 are the most socially isolated patients): 1 What type of physical activity do you participate in: walking Duration: 15-30 minutes/day Frequency: 3-4 times per week Rebecca/Zoroastrian: Quaker Special rebecca needs: No Seatbelt use: always Helmet use: No Drive intox 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 Do you feel safe in your relationship?: Yes Meds Allergies and Home Medications Allergies Allergy/AdvReac Type Severity Reaction Status Date / Time No Known Allergies Allergy Verified 05/10/23 09:40 Home Medications Medication Instructions Recorded Confirmed Type aspirin 81 mg chewable tablet 81 mg PO DAILY 10/16/17 05/10/23 History triamcinolone acetonide 0.025 % 1 applic topical BID #80 grams 04/19/22 08/05/23 Rx topical ointment metoprolol succinate 50 mg 50 mg PO DAILY #90 tabs 08/21/22 05/10/23 Rx tablet,extended release 24 hr amlodipine 10 mg tablet See Rx Instructions .Route 10/01/22 05/10/23 Rx .COMPLEX #90 tabs hydrochlorothiazide 25 mg tablet See Rx Instructions .Route 10/01/22 05/10/23 Rx .COMPLEX #90 tabs potassium chloride 20 mEq 20 meq PO ONCE 05/10/23 05/10/23 History tablet,extended release (K-Tab) Exam Const General: cooperative, well developed, well groomed and anxious Nutritional Appearance: obese Orientation: alert, awake and oriented x3 HENMT Head: normal to inspection Ears: hearing grossly normal bilaterally General nose exam: external nose normal Face and sinus: normal facial exam Mouth: oral mucosae normal Eyes General: appearance normal, both eyes and all related structures Alignment and Position: alignment normal Periorbital: periorbital findings normal Eyelids: eyelids normal Conjunctivae: conjunctivae normal Sclera: sclerae normal Cornea: corneas normal Neck Neck: normal visual inspection, full ROM, no lymphadenopathy, trachea midline and no JVD Carotids: normal carotid upstroke Chest Chest: normal inspection of the chest and abnormal inspection of the chest scar (left infraclavicular space w/ pacer; no induration or redness) Resp Effort & Inspection: normal respiratory effort Auscultation: wheezes expiratory wheezes, lower bilaterally and upper bilaterally Cardio Jugular venous pressure: no JVD Palpation: normal PMI Rate: tachycardic Rhythm: regular rhythm Heart Sounds: S1 normal, S2 normal and normal, physiologic split S2 Pulses: brachial pulses present, radial pulses present and normal peripheral pulses GI Inspection: normal to inspection Palpation: soft Auscultation: normal bowel sounds Skin General skin exam: no rashes or lesions noted, elasticity normal and turgor normal Neuro General: patient alert, patient awake, patient oriented x3, tone normal, moves all extremities and no focal motor deficits Cognition: normal cognition Speech: speech normal Motor: muscle tone normal throughout Sensory Exam: no sensory deficits noted Extrem General: normal to inspection, full ROM and capillary refill normal Right lower extremity: edema Details: non-pitting and 2+ Left lower extremity: full ROM, normal capillary refill and edema Details: non-pitting and 2+ Psych Appearance: grossly normal Mental Status: mental status grossly normal Speech and Movement: speech and movement normal Mood: congruent mood Affect: normal affect Attitude: cooperative Thought Process: normal Thought Content: normal Insight: insight good Results Imaging CT scan - chest: report reviewed and image reviewed EKG: report reviewed and image reviewed (v paced @ 119 bpm) Labs 05/10/23 10:25 05/10/23 10:25 Labs: Laboratory Results - last 24 hr 05/10/23 05/10/23 05/10/23 10:24 10:25 10:25 WBC 12.10 H RBC 5.26 H Hgb 15.0 Hct 45.5 MCV 87 MCH 28.5 MCHC 33.0 RDW 14.1 Plt Count 330 MPV 9.4 Immature Gran % 0.5 Neutrophils % 54.2 Lymphocytes % 35.3 Monocytes % 7.4 Eosinophils % 1.9 Basophils % 0.7 Nucleated RBC % 0.0 Absolute Neutrophils 6.56 Absolute Lymphocytes 4.27 H Absolute Monocytes 0.90 H Absolute Eosinophils 0.23 Absolute Basophils 0.08 PT INR APTT Sodium 139 Potassium 3.4 L Chloride 99 Carbon Dioxide 30.4 Anion Gap 9.6 BUN 18 Creatinine 1.1 H Est GFR (CKD-EPI 2020) 55.42 Glucose 133 H Calcium 9.6 Magnesium 2.0 Total Bilirubin 0.3 AST 16 ALT 23 Alkaline Phosphatase 148 H Troponin I < 50 NT-Pro-B Natriuret Pep 56 Total Protein 9.3 H Albumin 4.0 TSH Cancelled 1.50 Urine Color Urine Clarity Urine pH Ur Specific Marion Urine Protein Urine Ketones Urine Blood Urine Nitrite Urine Bilirubin Urine Urobilinogen Ur Leukocyte Esterase Urine RBC Urine WBC Ur Epithelial Cells Urine Crystals Urine Bacteria Urine Casts Urine Mucus Ur Culture Indicated? Urine Glucose COVID-19 Source SARS-CoV-2 (PCR) Influenza Type A (PCR) Influenza Type B (PCR) RSV (PCR) 05/10/23 05/10/23 05/10/23 10:25 10:45 11:26 WBC RBC Hgb Hct MCV MCH MCHC RDW Plt Count MPV Immature Gran % Neutrophils % Lymphocytes % Monocytes % Eosinophils % Basophils % Nucleated RBC % Absolute Neutrophils Absolute Lymphocytes Absolute Monocytes Absolute Eosinophils Absolute Basophils PT 9.9 INR 1.0 APTT 26.0 Sodium Potassium Chloride Carbon Dioxide Anion Gap BUN Creatinine Est GFR (CKD-EPI 2020) Glucose Calcium Magnesium Total Bilirubin AST ALT Alkaline Phosphatase Troponin I NT-Pro-B Natriuret Pep Total Protein Albumin TSH Urine Color Yellow Urine Clarity Clear Urine pH 7.0 Ur Specific Marion 1.020 Urine Protein 100 H Urine Ketones Negative Urine Blood Trace-intact H Urine Nitrite Positive H Urine Bilirubin Negative Urine Urobilinogen 0.2 Ur Leukocyte Esterase Negative Urine RBC 3-5 H Urine WBC 3-5 Ur Epithelial Cells Many Urine Crystals Negative Urine Bacteria Many Urine Casts Negative Urine Mucus Negative Ur Culture Indicated? No/Sq. Contamination Urine Glucose Negative COVID-19 Source Nasopharynx SARS-CoV-2 (PCR) Negative Influenza Type A (PCR) Negative Influenza Type B (PCR) Negative RSV (PCR) Negative 05/10/23 13:32 WBC RBC Hgb Hct MCV MCH MCHC RDW Plt Count MPV Immature Gran % Neutrophils % Lymphocytes % Monocytes % Eosinophils % Basophils % Nucleated RBC % Absolute Neutrophils Absolute Lymphocytes Absolute Monocytes Absolute Eosinophils Absolute Basophils PT INR APTT Sodium Potassium Chloride Carbon Dioxide Anion Gap BUN Creatinine Est GFR (CKD-EPI 2020) Glucose Calcium Magnesium Total Bilirubin AST ALT Alkaline Phosphatase Troponin I 106 H* NT-Pro-B Natriuret Pep Total Protein Albumin TSH Urine Color Urine Clarity Urine pH Ur Specific Marion Urine Protein Urine Ketones Urine Blood Urine Nitrite Urine Bilirubin Urine Urobilinogen Ur Leukocyte Esterase Urine RBC Urine WBC Ur Epithelial Cells Urine Crystals Urine Bacteria Urine Casts Urine Mucus Ur Culture Indicated? Urine Glucose COVID-19 Source SARS-CoV-2 (PCR) Influenza Type A (PCR) Influenza Type B (PCR) RSV (PCR) Last Vital Signs Temp 36.7 C 05/10/23 10:08 Pulse 128 H 05/10/23 10:46 Resp 17 05/10/23 10:50 BP 111/70 05/10/23 10:46 Pulse Ox 95 05/10/23 10:59 Time Spent Time spent with Patient: >75 minutes Time was spent: preparing to see the patient(eg.review tests), obtaining and/or reviewing separately otained hiistory, ordering medications,tests, procedures, referring, communicating with other health animal caretaker supervisor (discussion w/ Janet Rdz NP), indepentently interpreting results, counseling the patient and care coordination
[2023-05-10 15:55] LABS: Lactate 2.1 mmol/L (0.6-1.4)
--- NOTE | 2023-05-10 15:56 | POCUS_ITS ---
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
[2023-05-10] MEDS: Potassium Chloride 20 MEQ TABCR 40 MEQ PO (16:55)
[2023-05-10 17:22] LABS: Troponin I 163 ng/L (<or=60)
[2023-05-10] MEDS: Enoxaparin 40 MG/0.4 ML SYR 20 MG SC (17:44)
--- NOTE | 2023-05-10 18:05 | NUR.NOTE ---
Nursing Note: At 1735, RN paged to pt's room. Increased SOB, WOB. Pt's family at bedside. CCRN, RT, Nursing Metal Room Dental Technician and MD to room. VS- 37.5 T, 144/94 BP, 22 R, 122 P, 89% 4 L (increasing to 91% on 4 L with concentration on breathing). Lovenox 20 mg administered stat. Report given to DIRECTOR AUTOMOTIVEHANNAH Moreau. Pt transported to ICU.
--- NOTE | 2023-05-10 18:15 | NUR.NOTE ---
Patient transfers from Med/Surg to ICU bed 221 at 18:00. Telemetry connected, vital signs taken, report taken at bedside from [facility] Med/bobbin trucker. Dr. Ha is present and in communication with [facility]. Patient continues on 4 liters of 02 via nasal cannula. Patient is tachycardic with a heart rate of 122. Patient sating 94% on 4 liters of 02 via nasal cannula. BP is 118/78, respirations are 22. Patient is afebrile with a temperature of 37.1.Nursing Note:
[2023-05-10] MEDS: Ondansetron 4 MG/2 ML VIAL IVP (19:37)
--- NOTE | 2023-05-10 23:51 | DSE_ITS ---
Date of service: 05/10/23 Time of Service: 23:51 DS: Diagnosis Discharge Diagnosis (1) Pulmonary embolism, bilateral: Status: Acute Asessment and Plan: Anticoagulated and transferred to for consideration of embolectomy or catheter directed therapy. (2) Hypertension: Status: Chronic (3) Pacemaker: Status: Acute (4) Elevated troponin I level: Status: Acute Discharge Plan Disposition Patient Disposition: Transfer-Acute Inpatient Care Specific Acute Inpt Facility: [facility] Condition: Stable Discharge Details Reason For Visit: Pulmonary Embolism Admit Date/Time: 05/10/23 13:52 Admit Provider: Mariano Ha Attending Provider: Mariano Ha Primary Care Provider: Edwin Velázquez Hospital Course Hospital Course: This patient was admitted with acute hypoxic respiratory failure and had CT imaging consistent with large predominantly right-sided pulmonary embolism. [id number] ultrasound confirmed RV volume overload and she continued to require 4 to 6 L supplemental oxygen and remained tachycardic despite anticoagulation with weight-based enoxaparin. She was admitted to the ICU at [facility]. She was accepted to for consideration of more aggressive care and was transferred via ambulance uneventfully. Bilateral lower extremity venous ultrasound studies were negative for DVT. Home Meds and New Rx's Prescriptions: No Action triamcinolone acetonide 0.025 % ointment 1 applic Topical BID Qty: 80 2RF Patient Comments: has not filled rx yet Rx Instructions: Apply to bilateral breast creases twice per day. aspirin 81 MG tablet,chewable 81 mg PO DAILY metoprolol succinate 50 mg tablet extended release 24 hr 50 mg PO DAILY Qty: 90 3RF amlodipine 10 mg tablet See Rx Instructions .ROUTE .COMPLEX Qty: 90 3RF Dose Instruction: TAKE ONE TABLET BY MOUTH EVERY DAY Rx Instructions: TAKE ONE TABLET BY MOUTH EVERY DAY hydrochlorothiazide 25 mg tablet See Rx Instructions .ROUTE .COMPLEX Qty: 90 3RF Dose Instruction: TAKE ONE TABLET BY MOUTH EVERY DAY Rx Instructions: TAKE ONE TABLET BY MOUTH EVERY DAY potassium chloride [K-Tab] 20 mEq tablet extended release 20 meq PO ONCE Discharge Instructions Activity:: Activity as Tolerated Equipment/Supplies:: No Equipment Needed Diet:: As Tolerated Discharge Orders Discharge Orders: Discharge Order (Routine); Ordered 05/10/23 Ordered By: Balbir Lorenz Discharge Data Discharge Date/Time-TO BE ENTERED AT DEPARTURE: 05/10/23 22:54 DS: Summary Summary Time spent discussing smoking cessation with patient: 3 to 10 minutes Time Spent with Patient providing and/or coordinating discharge services: Less than 30 minutes Status at Discharge Functional status at discharge: bed bound Overall status at discharge: patient is not back to baseline Mental Status: mental status grossly normal Speech and Movement: speech and movement normal Mood: congruent mood Affect: normal affect Exam Narrative Exam Narrative: She remains in mild respiratory distress but is hemodynamically stable. Cardiac exam reveals tachycardia without murmur and her chest is clear to auscultation. There is trace lower extremity peripheral edema. Psych Mental Status: mental status grossly normal Speech and Movement: speech and movement normal Mood: congruent mood Affect: normal affect DS: Data Vitals/I&O Vitals and I&O: Vital Signs Temperature 37.1 C 05/10/23 20:12 Temperature Source Temporal Artery Scan 05/10/23 20:12 Pulse 120 H 05/10/23 20:12 Pulse Rhythm Regular 05/10/23 17:17 Pulse 112 H 05/10/23 15:20 Respiratory Rate 23 05/10/23 20:12 Respiratory Effort Labored 05/10/23 20:12 Respiratory Depth Normal 05/10/23 20:12 Respiratory Pattern Tachypnea 05/10/23 20:12 Blood Pressure 118/78 05/10/23 20:12 Blood Pressure Mean 91 05/10/23 20:12 Blood Pressure Position Supine 05/10/23 20:12 Pulse Oximetry 94 05/10/23 20:12 Oxygen Delivery Method Nasal Cannula 05/10/23 20:12 Oxygen Flow Rate 4 05/10/23 20:12 Pain Level 0 05/10/23 21:44 Comment Pt's SOB increased. Up to 4 L NC. CCRN, RT and MD in room. Transfer orders to ICU. Report given to HANNAH Moreau. 05/10/23 17:36 Intake & Output 05/09/23 05/10/23 05/10/23 23:59 11:59 23:59 Intake Total 159.866 / 159.866 Output Total 500 / 500 Balance -340.134 / -340.134 Weight 73.482 kg 76.1 kg Intake: IV 39.866 / 39.866 Oral 120 / 120 Output: Urine 500 / 500 Other: Urine Color Yellow Urine Appearance Clear Voiding Methods Bedside Commode Data Completed and Pending Labs on day of discharge: Labs from last 24 hours 05/10/23 05/10/23 05/10/23 16:30 15:48 13:32 WBC RBC Hgb Hct MCV MCH MCHC RDW Plt Count MPV Immature Gran % Neutrophils % Lymphocytes % Monocytes % Eosinophils % Basophils % Nucleated RBC % Absolute Neutrophils Absolute Lymphocytes Absolute Monocytes Absolute Eosinophils Absolute Basophils PT INR APTT VBG Lactate 2.1 H Sodium Potassium Chloride Carbon Dioxide Anion Gap BUN Creatinine Est GFR (CKD-EPI 2020) Glucose Calcium Magnesium Total Bilirubin AST ALT Alkaline Phosphatase Troponin I 163 H* 106 H* NT-Pro-B Natriuret Pep Total Protein Albumin TSH Urine Color Urine Clarity Urine pH Ur Specific [place] Urine Protein Urine Ketones Urine Blood Urine Nitrite Urine Bilirubin Urine Urobilinogen Ur Leukocyte Esterase Urine RBC Urine WBC Ur Epithelial Cells Urine Crystals Urine Bacteria Urine Casts Urine Mucus Ur Culture Indicated? Urine Glucose COVID-19 Source SARS-CoV-2 (PCR) Influenza Type A (PCR) Influenza Type B (PCR) RSV (PCR) 05/10/23 05/10/23 05/10/23 11:26 10:45 10:25 WBC RBC Hgb Hct MCV MCH MCHC RDW Plt Count MPV Immature Gran % Neutrophils % Lymphocytes % Monocytes % Eosinophils % Basophils % Nucleated RBC % Absolute Neutrophils Absolute Lymphocytes Absolute Monocytes Absolute Eosinophils Absolute Basophils PT 9.9 INR 1.0 APTT 26.0 VBG Lactate Sodium Potassium Chloride Carbon Dioxide Anion Gap BUN Creatinine Est GFR (CKD-EPI 2020) Glucose Calcium Magnesium Total Bilirubin AST ALT Alkaline Phosphatase Troponin I NT-Pro-B Natriuret Pep Total Protein Albumin TSH Urine Color Yellow Urine Clarity Clear Urine pH 7.0 Ur Specific [place] 1.020 Urine Protein 100 H Urine Ketones Negative Urine Blood Trace-intact H Urine Nitrite Positive H Urine Bilirubin Negative Urine Urobilinogen 0.2 Ur Leukocyte Esterase Negative Urine RBC 3-5 H Urine WBC 3-5 Ur Epithelial Cells Many Urine Crystals Negative Urine Bacteria Many Urine Casts Negative Urine Mucus Negative Ur Culture Indicated? No/Sq. Contamination Urine Glucose Negative COVID-19 Source Nasopharynx SARS-CoV-2 (PCR) Negative Influenza Type A (PCR) Negative Influenza Type B (PCR) Negative RSV (PCR) Negative 05/10/23 05/10/23 05/10/23 10:25 10:25 10:24 WBC 12.10 H RBC 5.26 H Hgb 15.0 Hct 45.5 MCV 87 MCH 28.5 MCHC 33.0 RDW 14.1 Plt Count 330 MPV 9.4 Immature Gran % 0.5 Neutrophils % 54.2 Lymphocytes % 35.3 Monocytes % 7.4 Eosinophils % 1.9 Basophils % 0.7 Nucleated RBC % 0.0 Absolute Neutrophils 6.56 Absolute Lymphocytes 4.27 H Absolute Monocytes 0.90 H Absolute Eosinophils 0.23 Absolute Basophils 0.08 PT INR APTT VBG Lactate Sodium 139 Potassium 3.4 L Chloride 99 Carbon Dioxide 30.4 Anion Gap 9.6 BUN 18 Creatinine 1.1 H Est GFR (CKD-EPI 2020) 55.42 Glucose 133 H Calcium 9.6 Magnesium 2.0 Total Bilirubin 0.3 AST 16 ALT 23 Alkaline Phosphatase 148 H Troponin I < 50 NT-Pro-B Natriuret Pep 56 Total Protein 9.3 H Albumin 4.0 TSH 1.50 Cancelled Urine Color Urine Clarity Urine pH Ur Specific [place] Urine Protein Urine Ketones Urine Blood Urine Nitrite Urine Bilirubin Urine Urobilinogen Ur Leukocyte Esterase Urine RBC Urine WBC Ur Epithelial Cells Urine Crystals Urine Bacteria Urine Casts Urine Mucus Ur Culture Indicated? Urine Glucose COVID-19 Source SARS-CoV-2 (PCR) Influenza Type A (PCR) Influenza Type B (PCR) RSV (PCR) PFSH All Active Problems Elevated troponin I level (Acute) Pulmonary embolism, bilateral (Acute) Pulmonary embolism on right (Acute) Hypertension (Chronic 11/27/17) Graves disease (Chronic) Chronic bilateral low back pain without sciatica (Chronic 11/27/17) Bradycardia by electrocardiogram (Chronic 10/16/17) 10/23/17 - Pacer placed at [facility] for complete HB. Uterine prolapse (Chronic) Declines [employer] consult so far Screening cholesterol level (Acute) Hypokalemia (Acute) Obesity (BMI 35.0-39.9 without comorbidity) (Chronic) COVID (Acute ~09/05/22) Pacemaker (Acute) Medical History Cardiomyopathy (~2008) echo 08/18/2009 generalized HK LV EF 39%; repeat echo 11/22/2021 normal, LVEF 61% Family History Mother Emphysema lung Asthma Father , AGE 84 Heart disease Kidney failure Sister Essential hypertension Sister Depression Brother Stroke Heart disease Brother Heart disease PACEMAKER Hyperlipidemia Son No problems noted. Daughter No problems noted. Social History Smoking/Tobacco Use Status: Never Second Hand Exposure: No Smoking risk assessment performed?: Yes Alcohol Intake: current Alcohol Intake frequency: a few times a month Alcohol type: beer and wine Drug use: Never Substance use type: does not use Counseling given: No Counseling provided: none Caregiver/Support person: No Household members: friend(s) Housing: other Communication Needs: None Pets and animals: Yes Pets and animals: cat(s) and dog(s) Sexually active: No Do you think of yourself as: straight/heterosexual Current gender identity: female What is your relationship status?: How often do you talk on the phone with friends or family?: twice per week How often do you get together with friends or relatives?: three or more times per week How often do you attend latter day or shinto services?: decline to answer Do you belong to any clubs or organized social groups?: no Panel score (0-1 are the most socially isolated patients): 1 What type of physical activity do you participate in: walking Duration: 15-30 minutes/day Frequency: 3-4 times per week Rebecca/Orthodox: Confucianism Special rebecca needs: No Seatbelt use: always Helmet use: No Drive intox or ride w/intox car pick up driver: No Do you feel safe in your relationship?: Yes Time Spent with Patient Time Spent with Patient: <45 minutes Time was spent: preparing to see the patient(eg.review tests), obtaining and/or reviewing separately otained hiistory, ordering medications,tests, procedures, referring, communicating with other health care trainer, indepentently interpreting results, counseling the patient and care coordination
== END 2023-05-10 22:54 | disposition short-term general hospital (02) | DRG 176 ==
LOC: ER 14:07 → MS 15:49 → ICU 17:56
PROVIDERS: Admitting Provider Internal Medicine; Emergency Provider Registered Nurse Emergency; PCP Nurse Practitioner Family; Visit Provider Internal Medicine
DX: I26.99 Other pulmonary embolism without acute cor pulmonale (principal); R09.02 Hypoxemia; I10 Essential (primary) hypertension; Z95.0 Presence of cardiac pacemaker; E66.9 Obesity, unspecified; E87.6 Hypokalemia; E05.00 Thyrotoxicosis with diffuse goiter without thyrotoxic crisis or storm; Z79.899 Other long term (current) drug therapy; Z79.82 Long term (current) use of aspirin; R74.8 Abnormal levels of other serum enzymes; M54.50 Low back pain, unspecified; G89.29 Other chronic pain; Z68.30 Body mass index [BMI] 30.0-30.9, adult; I51.7 Cardiomegaly; R00.0 Tachycardia, unspecified; E87.70 Fluid overload, unspecified
CPT/HCPCS: 36415; 71275; 80053; 87637; 93005; 93308; 96365; 99291; J1650; 81003; 81015; 83605; 83735; 83880; 84443; 84484; 85025; 85610; 85730; 93010; 93970; 99236; J2405; J3490; J7620

== ENCOUNTER → 2023-07-07 03:17 | Outpatient (CLI) | payer MEDICARE, SELFPAY ==
--- NOTE | 2023-07-07 15:17 | DI.MAMMO_ITS ---
Exam(s) MAMMO SCREENING EXAM: MAMMO SCREENING CLINICAL HISTORY: SCREENING, Z12.39. TECHNIQUE: Bilateral full field digital CC and MLO mammographic images were obtained with 3D tomosyn thesis and utilizing computer aided detection (CAD). COMPARISON: Prior mammograms were reviewed. FINDINGS: There has been no significant change in the appearance and distribution of the fibroglandular tissue. Left-sided cardiac pacemaker again noted. There are no CAD designations. There are no new spiculated masses nor malignant appearing microcalcification groups. There is no significant architectural distortion nor skin thickening-retraction. IMPRESSION: No radiographic evidence of malignancy. BI-RADS Category 1 - Negative Breast Density - Category B - Scattered areas of fibroglandular density Breast density Category C or D implies that the patient has dense breast tissue. Dense breast tissue can make it harder to find cancer on a mammogram. Dense breast tissue is also associated with an incr eased risk of breast cancer. This information about the result of the mammogram report was provided to the patient to raise their awareness. Use this report when you speak with the patient about their risks for breast cancer, which includes their family history. At that time, you may recommend additional screening tests (Ultrasoun d or MRI) as these tests may add significant information. A negative radiographic report should not delay biopsy if a dominant or clinically suspicious mass is present. Up to ten percent of cancers are not identified on mammography. A negative report may reinforce clinical impression. Adenosis and dense breasts may obscure an underlying neoplasm. False positive reports average 6 to 10%. Patient will receive a letter notifying them of these results.
== END ==
PROVIDERS: PCP Nurse Practitioner Family; Visit Provider Nurse Practitioner Family
DX: Z12.31 Encounter for screening mammogram for malignant neoplasm of breast (principal)
CPT/HCPCS: 77063; 77067

== ENCOUNTER 2024-01-30 10:08 | Outpatient (CLI) | payer MEDICARE, SELFPAY ==
--- NOTE | 2024-01-30 10:00 | RT.EKG_ITS ---
APPROVED REPORT Exam: Resting ECG Reason for Exam: hypertension Patient Location: O HR:99 bpm ECG Measurements Heart Rate 99 AXIS MT 153 P 85 QRSd 111 QRS -10 QT 400 T 107 QTc 514 Conclusion Atrial-sensed ventricular-paced rhythm...ventricular pacing tracks p-waves No further analysis attempted due to paced rhythm
== END 2024-01-30 10:09 | disposition home or self-care (01) ==
LOC: DI.CM 10:10
PROVIDERS: PCP Nurse Practitioner Family; Visit Provider Nurse Practitioner Family
DX: I10 Essential (primary) hypertension (principal)
CPT/HCPCS: 93010

== ENCOUNTER 2024-01-30 14:34 | Outpatient (REF) | payer MEDICARE, SELFPAY ==
[2024-01-30 13:04] LABS: HCT 48.9 % (36.0-46.0); HGB 15.5 g/dL (11.2-15.7); MCH 28.2 pg (27.0-33.0); MCHC 31.7 % (32.0-36.0); MCV 89 fL (80-95); MPV 9.3 fL (8.0-11.0); Platelet Count 358 10^3/uL (130-400); RDW 14.2 % (11.7-14.6); WBC 8.23 10^3/uL (4.4-10.8)
[2024-01-30 13:45] LABS: Hemoglobin A1C 5.7 % (<5.7)
[2024-01-30 13:57] LABS: ALT 25 U/L (14-59); AST 20 U/L (15-37); Alkaline Phosphatase 169 U/L (46-116); Anion Gap 10.2 mmol/L (3-11); BUN 22 mg/dL (7-18); Bilirubin, Total 0.4 mg/dL (0.2-1.0); CO2 27.8 mmol/L (21.0-32.0); Calcium 9.3 mg/dL (8.5-10.1); Chloride 104 mmol/L (98-107); Estimated GFR 62.13 (mL/min/1.73m2); Glucose 109 mg/dL (74-106); Potassium 4.2 mmol/L (3.5-5.1); Sodium 142 mmol/L (136-145); TSH (W/Ref FT4) 0.86 uIU/mL (0.36-3.74); Total Protein 8.5 g/dL (6.4-8.2)
== END 2024-01-30 14:35 | disposition home or self-care (01) ==
LOC: LBN 14:34
PROVIDERS: PCP Nurse Practitioner Family; Visit Provider Nurse Practitioner Family
DX: E05.00 Thyrotoxicosis with diffuse goiter without thyrotoxic crisis or storm (principal); R73.9 Hyperglycemia, unspecified
CPT/HCPCS: 80053; 85027; 83036; 84443

== ENCOUNTER 2024-07-23 02:05 | Outpatient (CLI) | payer MEDICARE, SELFPAY ==
[2024-07-23 13:27] LABS: ALT 21 U/L (14-59); AST 17 U/L (15-37); Albumin 3.7 g/dL (3.4-5.0); Alkaline Phosphatase 159 U/L (46-116); Anion Gap 11.1 mmol/L (3-11); BUN 20 mg/dL (7-18); Bilirubin, Total 0.34 mg/dL (0.2-1.0); CO2 25.9 mmol/L (21.0-32.0); CREATININE 0.9 mg/dL (0.55-1.02); Calcium 9.5 mg/dL (8.5-10.1); Calculated LDL 79 mg/dL (<100); Chloride 106 mmol/L (98-107); Cholesterol 155 mg/dL (<200); Estimated GFR 70.07 (mL/min/1.73m2); Glucose 104 mg/dL (74-106); HDL Cholesterol 62 mg/dL (40-60); Potassium 4.4 mmol/L (3.5-5.1); Sodium 143 mmol/L (136-145); Total Protein 8.5 g/dL (6.4-8.2); Triglyceride 71 mg/dL (<150)
== END 2024-07-23 02:06 | disposition home or self-care (01) ==
LOC: LOS 02:05
PROVIDERS: PCP Nurse Practitioner Family; Visit Provider Nurse Practitioner Family
DX: E78.5 Hyperlipidemia, unspecified (principal)
CPT/HCPCS: 36415; 80053; 80061

== ENCOUNTER 2024-07-28 02:26 | Outpatient (CLI) | payer MEDICARE, SELFPAY ==
--- NOTE | 2024-07-28 07:30 | DI.MAMMO_ITS ---
Exam(s) MAMMO SCREENING EXAM: MAMMO SCREENING CLINICAL HISTORY: screening,Z12.39. TECHNIQUE: Bilateral full field digital CC and MLO mammographic images were obtained with 3D tomosyn thesis and utilizing computer aided detection (CAD). COMPARISON: Prior mammograms were reviewed. FINDINGS: There has been no significant change in the appearance and distribution of the fibroglandular tissue. No CAD designations. There are no new spiculated masses nor malignant appearing microcalcification groups. Left-sided cardiac pacemaker again noted. There is no significant architectural distortion nor skin thickening-retraction. IMPRESSION: No radiographic evidence of malignancy. BI-RADS Category 1 - Negative Breast Density - Category B - Scattered areas of fibroglandular density Breast density Category C or D implies that the patient has dense breast tissue. Dense breast tissue can make it harder to find cancer on a mammogram. Dense breast tissue is also associated with an incr eased risk of breast cancer. This information about the result of the mammogram report was provided to the patient to raise their awareness. Use this report when you speak with the patient about their risks for breast cancer, which includes their family history. At that time, you may recommend additional screening tests (Ultrasoun d or MRI) as these tests may add significant information. A negative radiographic report should not delay biopsy if a dominant or clinically suspicious mass is present. Up to ten percent of cancers are not identified on mammography. A negative report may reinforce clinical impression. Adenosis and dense breasts may obscure an underlying neoplasm. False positive reports average 6 to 10%. Patient will receive a letter notifying them of these results.
== END 2024-07-28 02:46 ==
PROVIDERS: PCP Nurse Practitioner Family; Visit Provider Nurse Practitioner Family
DX: Z12.31 Encounter for screening mammogram for malignant neoplasm of breast (principal)
CPT/HCPCS: 77063; 77067

== ENCOUNTER 2024-08-05 02:20 | Outpatient (CLI) | payer MEDICARE, SELFPAY ==
--- NOTE | 2024-08-05 07:45 | DI.DEXA_ITS ---
Exam(s) XR DEXA BONE DENSITY W/WO CRICKET EXAM: XR DEXA BONE DENSITY W/WO CRICKET CLINICAL HISTORY: screening for osteoporosis IN POSTMENOPAUSAL WOMAN,Z78.0 TECHNIQUE: Routine DEXA evaluation of the lumbar spine, hip, or forearm. COMPARISON: No exams were available for comparison FINDINGS: Performed on a Hologic unit. Lateral image: No compression fracture evident. Lumbar Spine total T-score: -2.5. This is in the osteoporosis range. Hip total T-score:-1.5. This is in the osteopenia range Independent reading at the level of the femoral neck yields T-score of -1.6 Forearm total T-score: -3.3. This is in the osteoporosis range IMPRESSION: Bone mineral density measures in the osteoporosis range. Fracture risk is high. Note: Any spine fracture indicates 5x risk for subsequent spine fracture and 2x risk for subsequent h ip fracture. World Health Organization criteria for BMD interpretation classify patients: Normal...... T- Score at or above -1.0 Osteopenic... T- Score between -1.0 and -2.5 Osteoporosis... T-Score at or below -2.5
== END 2024-08-05 02:40 ==
PROVIDERS: PCP Nurse Practitioner Family; Visit Provider Nurse Practitioner Family
DX: Z78.0 Asymptomatic menopausal state (principal); Z13.820 Encounter for screening for osteoporosis
CPT/HCPCS: 77080

== ENCOUNTER 2025-07-29 09:55 | Outpatient (CLI) | payer MEDICARE, SELFPAY ==
[2025-07-29 14:33] LABS: ALT 27 U/L (14-59); AST 17 U/L (15-37); Albumin 3.9 g/dL (3.4-5.0); Alkaline Phosphatase 127 U/L (46-116); Anion Gap 7.6 mmol/L (3-11); BUN 19 mg/dL (7-18); Bilirubin, Total 0.3 mg/dL (0.2-1.0); CO2 29.4 mmol/L (21.0-32.0); Calcium 9.3 mg/dL (8.5-10.1); Calculated LDL 107 mg/dL (<100); Chloride 103 mmol/L (98-107); Cholesterol 193 mg/dL (<200); Estimated GFR 69.64 (mL/min/1.73m2); Glucose 118 mg/dL (74-106); HDL Cholesterol 60 mg/dL (>or=50); Potassium 3.9 mmol/L (3.5-5.1); Sodium 140 mmol/L (136-145); TSH (W/Ref FT4) 1.37 uIU/mL (0.36-3.74); Total Protein 8.9 g/dL (6.4-8.2); Triglyceride 134 mg/dL (<150)
== END 2025-07-29 09:56 | disposition home or self-care (01) ==
PROVIDERS: PCP Nurse Practitioner Family; Visit Provider Nurse Practitioner Family
DX: E78.5 Hyperlipidemia, unspecified (principal)
CPT/HCPCS: 36415; 80053; 80061; 84443

== ENCOUNTER 2025-08-02 01:05 | Outpatient (CLI) | payer MEDICARE, SELFPAY ==
--- NOTE | 2025-08-02 08:15 | DI.MAMMO_ITS ---
Exam(s) MAMMO SCREENING EXAM: MAMMO SCREENING CLINICAL HISTORY: screening,Z12.30,Z00.00,ENCOUNTER FOR GEN MEDICAL EXAM. TECHNIQUE: Bilateral full field digital CC and MLO mammographic images were obtained with 3D tomosynthesis and utilizing computer aided detection (CAD). COMPARISON: Prior mammograms were reviewed. FINDINGS: Left-sided cardiac pacemaker noted. No new left breast findings. In the right breast at approximately 6 o'clock position there is noncalcified nodule measuring 5 by 3 mm located 5 cm in from the nipple on the CC view and larger than previous. In 202 it had the appearance of a small benign intramammary lymph node. It has slightly increased in size since that time. There are no malignant-appearing microcalcification groups in this region or elsewhere in either breast. There is no significant architectural distortion nor skin thickening-retraction. IMPRESSION: 1. No radiographic evidence of malignancy in left breast. 2. 5 x 3 mm right breast nodules described above which has slightly increased in size from previous mammograms. Spot compression view and ultrasound recommended. BI-RADS Category 0 - Incomplete: Need additional imaging evaluation Breast Density - Category B - There are scattered areas of fibroglandular density. Breast density Category C or D implies that the patient has dense breast tissue. Dense breast tissue can make it harder to find cancer on a mammogram. Dense breast tissue is also associated with an increased risk of breast cancer. This information about the result of the mammogram report was provided to the patient to raise their awareness. Use this report when you speak with the patient about their risks for breast cancer, which includes their family history. At that time, you may recommend additional screening tests (Ultrasound or MRI) as these tests may add significant information. A negative radiographic report should not delay biopsy if a dominant or clinically suspicious mass is present. Up to ten percent of cancers are not identified on mammography. A negative report may reinforce clinical impression. Adenosis and dense breasts may obscure an underlying neoplasm. False positive reports average 6 to 10%. Patient will receive a letter notifying them of these results.
== END 2025-08-02 01:25 ==
LOC: DI 01:05
PROVIDERS: PCP Nurse Practitioner Family; Visit Provider Nurse Practitioner Family
DX: Z12.31 Encounter for screening mammogram for malignant neoplasm of breast (principal); Z00.00 Encounter for general adult medical examination without abnormal findings
CPT/HCPCS: 77063; 77067

== ENCOUNTER → 2025-08-19 03:05 | Outpatient (CLI) | payer MEDICARE, SELFPAY ==
--- NOTE | 2025-08-19 | DI.US_ITS ---
Exam(s) MG MAMMO SCREEN CALL BACK UNI US BREAST RT COMPLETE EXAM: MG MAMMO SCREEN CALL BACK UNI-RIGHT AND COMPLETE RIGHT BREAST ULTRASOUND CLINICAL HISTORY: 5X3MM RT BREAST NODULE SLIGHTLY INCREASED FROM PREV R92.8 ABNL MAMMO. TECHNIQUE: Unilateral RIGHT BREAST spot mammographic images obtained with 3D tomosynthesisand utilizing computer aided detection (CAD). . Complete RIGHT breast Ultrasound was also performed, including all 4 quadrants, the retroareolar region, and the ipsilateral axilla. COMPARISON: Prior mammograms were reviewed. This additional imaging was performed due to findings described on the recent screening mammogram of 08/02/2025. FINDINGS: DIAGNOSTIC MAMMOGRAM: Additional mammographic views performed todayis somewhat equivocal. We proceeded with ultrasound COMPLETE RIGHT BREAST ULTRASOUND: Ultrasound performed today reveals no evidence of solid or significant cystic lesions in all 4 quadrants of right breast.. This implies that the small nodular densities probably a benign intramammary lymph node. Scanning of the ipsilateral axilla reveals no significant adenopathy. IMPRESSION: 1. Small right breast nodule is probably a benign intramammary lymph node given that it is not visualized on ultrasound exam. 2. Appropriate follow-up, as discussed by myself with the patient today, is repeat right breast mammogram and ultrasound in 6 months, with earlier imaging if a self detected breast change is noted. The patient was informed of these findings and recommendations by myself prior to leaving the department today. BI-RADS Category 3 - 6 month - Probably Benign Finding: Recommend follow-up mammography in 6 months Breast Density - Category B - There are scattered areas of fibroglandular density. Breast density Category C or D implies that the patient has dense breast tissue. Dense breast tissue can make it harder to find cancer on a mammogram. Dense breast tissue is also associated with an increased risk of breast cancer. This information about the result of the mammogram report was provided to the patient to raise their awareness. Use this report when you speak with the patient about their risks for breast cancer, which includes their family history. At that time, you may recommend additional screening tests (Ultrasound or MRI) as these tests may add significant information. A negative radiographic report should not delay biopsy if a dominant or clinically suspicious mass is present. Up to ten percent of cancers are not identified on mammography. A negative report may reinforce clinical impression. Adenosis and dense breasts may obscure an underlying neoplasm. False positive reports average 6 to 10%. Patient will receive a letter notifying them of these results.
== END ==
LOC: DI 03:05
PROVIDERS: PCP Nurse Practitioner Family; Visit Provider Nurse Practitioner Family
DX: R92.8 Other abnormal and inconclusive findings on diagnostic imaging of breast (principal); Z12.31 Encounter for screening mammogram for malignant neoplasm of breast
CPT/HCPCS: 76642; 77063; 77067